=== PATIENT | female | born 1940 | race Caucasian/White ===

== ENCOUNTER 2017-07-15 14:08 | Emergency (ER) | payer MEDICARE, SELFPAY ==
[2017-07-15 14:13] VITALS: BP 145/64; PULSE 75; RESP 16; TEMP 37.1; O2SAT 98; BMI 28.3
--- NOTE | 2017-07-15 14:36 | PC.NURSE ---
ORTHOSTATIC VITAL SIGNS FOLLOWS SITTING 131/72 HR 79 SUPINE 145/64 HR 82 STANDING 120/75 HR 90 ADVISED
--- NOTE | 2017-07-15 14:47 | CT_ITS ---
CT head/brain wo con Ordering Physician: Riky Anderson MD Patient Age: 76 years: Female HISTORY: ITS.REASON: left face numnbness Syncope. Rule out stroke. TECHNIQUE: Routine axial CT head. Without contrast. Brain and bone windows performed COMPARISON :None. FINDINGS No acute intracranial findings. No hemorrhage. No mass effect and no subdural collection. .. No territorial infarct evident .diffuse cerebral atrophy. Ventricles and basal cisterns clear. Posterior fossa unremarkable. Suspect subtle chronic small vessel deep white matter changes cerebral hemispheres Bone windows. Skull intact paranasal sinuses clear. Hypertrophic changes frontal bone skull. Lucent area at the frontal bone just to left of midline most likely benign arachnoid granulation feature Scant physiologic calcification both medial basal ganglia. IMPRESSION: 1. No acute intrarenal findings. No hemorrhage. No mass. No subdural 2.. Cerebral atrophy.
--- NOTE | 2017-07-15 14:47 | XR_ITS ---
XR chest AP HISTORY: ITS.REASON: chest pain ORDERING PHYSICIAN: Riky Anderson MD PATIENT AGE: 76 years COMPARISON: None available FINDINGS: The cardiomediastinal silhouette and pulmonary vascularity are within normal limits. Bilateral partially calcified breast implants are noted The lungs are clear without infiltrates, suspicious nodules, or pleural effusions. No acute bony abnormalities. IMPRESSION: No acute finding
[2017-07-15 14:52] VITALS: BMI 28.2
[2017-07-15 15:28] LABS: Basophils # 0.1 K/mm3 (0-0.2); Basophils % 0.6 % (0.1-2.0); Eosinophils # 0.3 K/mm3 (0.0-0.4); Hematocrit 39.9 % (37.0-47.0); Hemoglobin 13.3 g/dL (12.2-16.2); Lymphocytes # 2.2 K/mm3 (0.7-4.5); Lymphocytes % 27.1 K/mm3 (10-50); Mean Corpuscular HGB Conc 33.3 g/dL (31.8-35.4); Mean Corpuscular Hemoglobin 31.2 pg (27.0-31.2); Mean Corpuscular Volume 93.8 fl (81-99); Mean Platelet Volume 8.2 fl (7.4-10.4); Monocytes # 0.6 K/mm3 (0.1-1.0); Monocytes % 7.2 % (1.7-9.3); Neutrophils # 5.1 K/mm3 (1.8-7.8); Neutrophils % 62.2 % (37.0-80.0); Platelet Count 348 K/mm3 (142-424); Red Blood Count 4.26 M/mm3 (4.20-5.40); Red Cell Distribution Width 12.7 % (11.5-17.5); White Blood Count 8.3 K/mm3 (4.8-10.8)
[2017-07-15 15:41] LABS: Activated Partial Thrombo Time 23.3 seconds (23.6-34.0); INR 0.88 (0.9-1.1); Prothrombin Time 9.5 seconds (9.4-11.8)
[2017-07-15 15:49] LABS: Creatine Kinase MB 1.1 mg/ml (0.0-3.6); D-Dimer 124 (0-400)
[2017-07-15 16:13] LABS: Anion Gap 15.2 mEq/L (5-15); Blood Urea Nitrogen 19 mg/dL (7-18); Carbon Dioxide 27 mmol/L (21.0-32.0); Chloride 102 mmol/L (98-107); Creatinine Clearance Estimated 41 mL/min (0-300); Creatinine,Serum 1.18 mg/dL (0.55-1.02); Estimated Glomerular Filt Rate 44 ml/min (>60); GFR (African American) 54 ML/MIN (>60); Potassium 4.2 mmoL/L (3.5-5.1); Sodium 140 mmol/L (136-145)
[2017-07-15 16:14] LABS: Alanine Aminotransferase 36 U/L (12-78); Aspartate Amino Transferase 18 U/L (15-37); Bilirubin,Total 0.3 mg/dL (0.2-1.0); Calcium 9.2 mg/dL (8.5-10.1); Glucose 275 mg/dL (74-106); Total Protein,Serum 7.5 gm/dL (6.4-8.2)
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
[2017-07-15 16:15] LABS: Albumin Level 3.8 gm/dL (3.4-5.0); Alkaline Phosphatase 60 U/L (46-116); Globulin 3.7 gm/dl (1.3-3.2); Troponin I < 0.02 ng/ml (0.00-0.06)
--- NOTE | 2017-07-15 16:20 | [facility].EDCP ---
ED Disposition Clinical Impression: Hypoglycemia Syncope Qualifiers: Syncope type: unspecified Qualified Code(s): R55 - Syncope and collapse Disposition: Home, Self-Care Condition on Discharge: Good Additional Instructions: Please follow-up with your family physician within 2 days, for evaluation. Time of Disposition: 17:36 - Critical Care Critical Care Time: No Attestation: On 07/15/17, the high probability of a clinically significant, sudden or life threatening deterioration of the following system(s) required my full and direct attention, intervention and personal management. The time I documented below is in addition to time spent performing reported procedures but includes the following listed in this critical care notation. Medical Decision Making - Medical Records Medical records reviewed: Yes: I reviewed the patient's medical records. Vital Signs: 07/15/17 14:13 07/15/17 16:54 07/15/17 18:12 Temperature 98.8 F 98 F Temperature Source Oral Oral Pulse Rate 67 Pulse Rate [Right Radial] 75 69 Respiratory Rate 16 16 18 Blood Pressure 127/61 Blood Pressure [Left Arm] 145/64 124/63 Blood Pressure Mean [Left Arm] 91 83 Blood Pressure Source Automatic Cuff Blood Pressure Source [Left Arm] Automatic Cuff Automatic Cuff Blood Pressure Position Sitting Blood Pressure Position [Left Arm] Sitting 02 Sat by Pulse Oximetry 98 96 Oxygen Delivery Method Room Air Room Air Room Air - Lab Data Lab results reviewed: Yes: I reviewed the patient's lab results. Lab Results 07/15/17 15:10: WBC 8.3, RBC 4.26, Hgb 13.3, Hct 39.9, MCV 93.8, MCH 31.2, MCHC 33.3, RDW 12.7, Plt Count 348, MPV 8.2, Neut % (Auto) 62.2, Lymph % (Auto) 27.1, [place] % (Auto) 7.2, Eos % (Auto) 3.0, Baso % (Auto) 0.6, Neut # (Auto) 5.1, Lymph # (Auto) 2.2, [place] # (Auto) 0.6, Eos # (Auto) 0.3, Baso # (Auto) 0.1 07/15/17 15:10: PT 9.5, INR 0.88 L, APTT 23.3 L, D-Dimer 124 07/15/17 15:10: CK-MB (CK-2) 1.1 07/15/17 15:10: B-Natriuretic Peptide 16 07/15/17 15:10: Troponin I < 0.02 07/15/17 15:10: Sodium 140, Potassium 4.2, Chloride 102, Carbon Dioxide 27, Anion Gap 15.2 H, BUN 19 H, Creatinine 1.18 H, Estimated Creat Clear 41, Estimated GFR 44 L, Est GFR ( Amer) 54 L, Glucose 275 H, Calcium 9.2, Total Bilirubin 0.3, AST 18, ALT 36, Alkaline Phosphatase 60, Total Protein 7.5, Albumin 3.8, Globulin 3.7 H, Albumin/Globulin Ratio 1.0 L Result diagrams: 07/15/17 15:10 07/15/17 15:10 Orders (Tests/Meds): ORDERS Category Date Time Status POC Glucose,Bedside Routine Lab 07/15/17 17:42 Received POC Glucose,Bedside Stat Lab 07/15/17 17:37 Ordered - Radiology Data #1 Image(s): Chest Image Reviewed: Yes I reviewed the patient's radiology results, Yes I reviewed the patient's radiology image, Yes I have reviewed radiologist's interpretation see the radiologist's interpretation NAD - CT Data CT Scan: Head (without dye) Time Received: 17:[address] Reviewed: Yes: I have reviewed the patient's CT results Preliminary Findings: Normal/NAD - ECG Data Tracing #1 I reviewed this ECG and interpreted as documented below: ECG normal with no acute: arrhythmias, ischemia, conduction abnormalities, chamber hypertrophy Normal Sinus Rhythm: Yes - [place] Inquiry Pt receiving controlled substance: No - Reevaluation(s) Time: 17:15 Reevaluation #1: case d/w with PCP, DR Joseph, who declined admission stating that he is very familiar with this case, and she has had similar episodes in the past, and to instruct the patient to come see him in the office in am. Chest Pain HPI - General Chief Complaint: Chest Pain Stated Complaint: chest pain Mode of Arrival: EMS Limitations: No Limitations Description of Symptoms (Recalled from ER Triage Doc. by RN): Has sharp pain under left breat along with nausea - History of Present Illness MD complaint: other (hypoglycemia) Onset (ago): minute(s) (30min [employer]) Duration: now
[2017-07-15 16:54] VITALS: BP 124/63; PULSE 69; RESP 16; O2SAT 96
[2017-07-15 18:12] VITALS: BP 127/61; PULSE 67; RESP 18; TEMP 36.6
[2017-07-18 15:10] LABS: POC Glucose,Bedside 113 mg/dL (70-110)
== END 2017-07-15 18:05 | disposition home or self-care (01) ==
PROVIDERS: Emergency Provider Emergency Medicine
DX: E11.649 Type 2 diabetes mellitus with hypoglycemia without coma (principal); R55 Syncope and collapse; Z87.891 Personal history of nicotine dependence
CPT/HCPCS: 70450; 71045; 80053; 82553; 82962; 83880; 84484; 85025; 85378; 85610; 85730; 93005; 99283